=== PATIENT | male | born 1955 | race Caucasian/White ===

== ENCOUNTER 2021-11-19 02:25 | Emergency (ER) | payer MEDICAID ==
[~2021-11-19] VITALS: Ht 182.9 cm; Wt 93.8 kg
[2021-11-19] MEDS ORDERED: DOXYCYCLINE 100MG CAPSULE PO STA (02:52)
[2021-11-19] MEDS ORDERED: DOXY-1 PO (02:54)
[2021-11-19] MEDS ORDERED: CefTRIAXone 250MG inj IM ONE (02:55)
[2021-11-19] MEDS ORDERED: CefTRIAXone 1000mg IM Kit (w/lidocaine diluent) IM ONE (03:00)
[2021-11-19 03:36] VITALS: BP 190/120
== END 2021-11-19 04:05 | disposition home or self-care (01) ==
LOC: ER 02:26
DX: A64 Unspecified sexually transmitted disease (principal)
CPT/HCPCS: 96372; 99283; J0696

== ENCOUNTER 2022-03-18 14:58 | Emergency (ER) | payer MEDICAID ==
[~2022-03-18] VITALS: Ht 182.9 cm; Wt 94.0 kg
[2022-03-18 15:11] VITALS: BP 196/111
[2022-03-18 15:35] LABS: CLARITY,URINE CLOUDY (Clear); COLOR,URINE YELLOW (Yellow); GLUCOSE, URINE NEGATIVE (Neg); KETONES,URINE NEGATIVE (Neg); LEUKOCYTE ESTERASE ,URINE TRACE (Neg); NITRITES, URINE NEGATIVE (Neg); OCCULT BLOOD,URINE NEGATIVE (Neg); PROTEIN,URINE TRACE mg/dl (Neg); UROBILINOGEN,URINE 0.2 E.U/dL (0.2-1.0)
[2022-03-18 15:55] LABS: UA COLLECTION TYPE CLN CATCH MIDSTREAM
[2022-03-18 15:57] LABS: BACTERIA,URINE FEW /HPF (Neg); RBC,URINE 0-2 /HPF (0-2); SQUAMOUS EPITHELIAL CELL,UR FEW /LPF (FEW)
[2022-03-18] MEDS ORDERED: PENICILLIN G BENZATHINE 2,400,000 UNIT/4 ML SYRINGE IM STA (16:17)
[2022-03-18] MEDS ORDERED: CefTRIAXone 1000mg IM Kit (w/lidocaine diluent) IM STA (16:17)
[2022-03-18] MEDS ORDERED: DOXYCYCLINE 100MG CAPSULE PO STA (16:17)
[2022-03-18] MEDS ORDERED: DOXY100C77 PO (16:33)
== END 2022-03-18 17:10 | disposition home or self-care (01) ==
LOC: ER 14:59
DX: A64 Unspecified sexually transmitted disease (principal); N39.0 Urinary tract infection, site not specified
CPT/HCPCS: 36415; 81001; 86592; 87088; 87491; 87591; 96372; 99284; J0561; J0696

== ENCOUNTER 2025-05-25 18:12 | Emergency (ER) | payer BC, MEDICAID ==
[~2025-05-25] VITALS: Ht 182.9 cm; Wt 90.0 kg
--- NOTE | 2025-05-25 18:42 | Physician Documentation ---
History of Present Illness General Chief Complaint: Urinary Symptoms Stated Complaint: ALL OVER NUMBNESS Time Seen by MD: 18:39 Primary Medical Doctor: NONE History of Present Illness Initial Comments The patient is a 69-year-old male who states over the last month he has had urinary tract infections and had antibiotics changed 4 times. Patient states he has had multiple episodes of dizziness and numbness during this last month. He states he has been dizzy and unsteady when he ambulates he has also been weak over last two days. Patient states he does not have any current urinary symptoms. The patient states he has subjective fevers but no documented fevers he denies any nausea vomiting or diarrhea. The patient denies any focal weakness. Patient states he has a history of COPD denies denies any cardiac history. Medication Reconciliation Allergies: Coded Allergies: No Known Allergies (Unverified , 11/19/21) Scheduled Polyethylene Glycol 3350 (Clearlax), 17 GM PO BID Past Medical History Past Medical History: Hypertension Past Surgical History: no surgical history Lives In: Home Review of Systems All Other Systems at this time: Reviewed and Negative Physical Exam Physical Exam Vital Signs: Temperature: 97.9, Source: Oral, Heart Rate: 50, Respiratory Rate: 18, BP: 84/54, Pulse Oximetry: 97, Weight: 90.000 Oxygen Flow Rate: 0 Physical Exam VITALS: Reviewed and as above. GENERAL: Alert, no apparent distress. HEENT: Normocephalic, atraumatic, PERRL, EOMI, dry mucosa, no erythema RESPIRATORY: Lungs clear, normal breath sounds, no respiratory distress. CHEST: No accessory muscle use, no retractions CV: Regular rate, rhythm, no edema, no murmur, No: JVD GI: Soft, non-tender, bowels sounds present, no rebound, guarding, or rigidity BACK: No CVA tenderness, or swelling MUSCULOSKELETAL No deformities, no edema SKIN: Warm and dry, no rash NEURO: Oriented x4, No motor or sensory deficit PSYCH: Normal mood and affect, no agitation Progress Results/Orders Results/Orders Orders - KERON ZELAYA MD Culture Blood (05/25/25 18:38) Monitor (05/25/25 18:38) Straight Cath For Urine Sample (05/25/25 18:38) Cult Urine + [place] [address] (05/25/25 21:24) Completed Orders - OHLFS,KERON [place] MD Cbc/Diff (05/25/25 18:38) Lacticsepsis (05/25/25 18:38) Electrocardiogram (05/25/25 ) Procalcitonin (05/25/25 18:41) Normal Saline 1000ml (0.9% Sodium Chlori (05/25/25 18:45) Normal Saline 1000ml (0.9% Sodium Chlori (05/25/25 18:45) Hs Troponin I W Calculations (05/25/25 19:24) Ceftriaxone 2gm/D5w 50ml Bag (Rocephin 2 (05/25/25 19:55) Lactic,2hr (05/25/25 20:12) BMP (05/25/25 20:30) Ua W/Microscopic, Cult If Ind (05/25/25 20:20) Medications Received in ER Medications (Trade) Dose Ordered Sig/Josh Route PRN Reason Start Time Stop Time Status Last Admin Dose Admin Ceftriaxone Sodium/Dextrose 50 ml @ 100 mls/hr ONCE ONCE IV 05/25/25 19:55 05/25/25 20:24 DC 05/25/25 20:21 100 MLS/HR Vital Signs 05/25/25 05/25/25 05/25/25 05/25/25 18:24 18:46 18:55 18:56 Temp 97.9 Pulse 50 95 90 88 Resp 18 20 22 20 B/P (MAP) 84/54 120/63 (82) 82/63 (69) 133/81 (98) Pulse Ox 97 95 94 96 O2 Flow Rate 0 0 0 0 05/25/25 05/25/25 05/25/25 20:04 20:06 22:57 Temp 97.9 Pulse 88 90 Resp 16 18 18 B/P (MAP) Pulse Ox 97 95 O2 Flow Rate 0 Laboratory Tests Test 05/25/25 18:43 05/25/25 20:20 05/25/25 20:37 White Blood Count 11.0 Red Blood Count 5.12 Hemoglobin 15.2 Hematocrit 44.3 Mean Corpuscular Volume 86.4 Mean Corpuscular Hemoglobin 29.8 Mean Corpuscular Hemoglobin Concent 34.4 Red Cell Distribution Width 14.5 Platelet Count 364 Mean Platelet Volume 7.0 L Neutrophils (%) (Auto) 64.0 Lymphocytes (%) (Auto) 24.5 Monocytes (%) (Auto) 7.9 Eosinophils (%) (Auto) 2.6 Basophils (%) (Auto) 1.0 Neutrophils # (Auto) 7.0 Lymphocytes # (Auto) 2.7 Monocytes # (Auto) 0.9 Eosinophils # (Auto) 0.3 Basophils # (Auto) 0.1 CBC Comment Sodium Level 139 Potassium Level 4.0 Chloride Level 102 Carbon Dioxide Level 22.1 L Anion Gap 15 Blood Urea Nitrogen 30 H Creatinine 1.63 H Estimated GFR/1.73 m2 42 BUN/Creatinine Ratio 18.4 Glucose Level 138 H Lactic Acid Level 2.2 H 1.0 Calcium Level 9.4 Troponin I High Sensitivity 24 Albumin 2.8 L Procalcitonin 0.09 Chemistry Comments Urine Specimen Description Non-specified Urine Color Yellow Urine Clarity Clear Urine pH 6.0 Urine Specific [place] 1.020 Urine Protein Negative Urine Glucose (UA) Negative Urine Ketones Negative Urine Occult Blood Negative Urine Nitrite Negative Urine Bilirubin Negative Urine Urobilinogen 0.2 Urine Leukocyte Esterase Small H Urine RBC 0-2 Urine WBC 20-30 H Urine Squamous Epithelial Cells Few Urine Bacteria Few Urine Mucus Few Urine Culture Indicated Indicated Volume Urine Centrifuged 10 ml Urine Comment Microbiology Date/Time Source Procedure Growth Status 05/25/25 21:24 Urine Nonspecified Urine Culture - Preliminary Culture received. Resulted 05/25/25 20:37 Blood Arm Left Blood Culture - Preliminary NEGATIVE (LESS THAN 24 HOURS) Resulted Medical Decision Making Findings Twelve lead EKG was interpreted by me as a sinus rhythm with a normal axis no ST elevation or ST depression was appreciated impression is a normal-appearing EKG rate is 93 time of the interpretation was 184. The patient presented with weakness and numbness. The patient had several low blood pressures here in the emergency department. He has been treated over last month for urinary tract infection. The patient denied any recent fevers or chills. The patient was found to be clinically dehydrated he was hydrated in the emergency room with improvement of his blood pressure. The patient was given antibiotics for his UTI he was given a dose of ceftriaxone the patient states he is on two antibiotics at home he is not sure of which antibiotics they are. The patient's symptoms improved while she he was in the emergency room. Prior hospitalizations have been reviewed.. The patient's teletypesetter monitor was interpreted as a sinus rhythm in his pulse oximetry was interpreted as normal and adequate. The patient was discharged in he was advised to return if he has worsening or recurrence of his symptoms. Departure Time of Disposition: 22:00 Impression: Primary Impression: Acute urinary tract infection Additional Impression: Dehydration Discharge Instructions: Urinary Tract Infection, Adult Additional Instructions: Drink plenty of fluids. Follow up with your healthcare providers soon as possible. Continue your antibiotics the you already have. Return for any worsening of your symptoms. Referrals: NO PRIMARY CARE PROVIDER (PCP) Prescriptions Polyethylene Glycol 3350 (Clearlax) 17 Gram/Dose Powder 17 GM PO BID for 30 Days, #1020 POWDER Prov: KERON ZELAYA MD 05/25/25 Signature Scribe Signature: no scribe Attestation: The note accurately reflects work and decisions made by me.Keron Zelaya MD 05/26/25 03:24 KERON ZELAYA MD May 25, 2025 18:42
[2025-05-25] MEDS: normal saline 1000ml 1,000 ML IV ONE ×2 (18:47→18:48)
--- NOTE | 2025-05-25 18:47 | ELECTROCARDIOGRAPH REPORT ---
[facility] Test Date: 2025-05-25 Test Time: 18:45:35 Pat Name: WILL JO Department: [facility] Patient ID: [facility]-[id number] Room: Gender: M Medical Terminologist: : 1955 Requested By: KERON ZELAYA Order Number: [id number] Reading MD: Measurements Intervals [place] Rate: 93 P: 76 MT: 136 QRS: 54 QRSD: 93 T: 61 QT: 361 QTc: 449 Interpretive Statements Sinus rhythm Atrial premature complex Minimal ST elevation, anterior leads Please click the below link to view image of tracing.
[2025-05-25 18:52] LABS: MEAN PLATELET VOLUME 7.0 FL (7.4-10.4); RED CELL DISTRIBUTION WIDTH 14.5 % (11.5-14.5)
[2025-05-25 18:56] VITALS: BP 133/81
[2025-05-25] MEDS: CefTRIAXone 2gm/D5W 50ml BAG 50 ML IV ONE (20:21)
[2025-05-25 20:44] LABS: CREATININE 1.63 MG/DL (0.60-1.10); TOTAL CARBON DIOXIDE 22.1 MMOL/L (24-32); eCRCL 48 ML/MIN; eGFR 42 ML/MIN
[2025-05-25 21:08] LABS: LEUKOCYTE ESTERASE ,URINE SMALL (Neg); NITRITES, URINE NEGATIVE (Neg); OCCULT BLOOD,URINE NEGATIVE (Neg)
[2025-05-25 21:20] LABS: UA COLLECTION TYPE NON-SPECIFIED
[2025-05-25 21:23] LABS: SQUAMOUS EPITHELIAL CELL,UR FEW /LPF (FEW)
[2025-05-25 21:24] LABS: MUCUS STRANDS FEW /LPF (Neg)
[2025-05-25] MEDS ORDERED: POLY119P3 PO (22:41)
[2025-05-25 22:57] VITALS: PULSE 90; RESP 18; TEMP 97.9; O2SAT 95
== END 2025-05-25 23:00 | disposition home or self-care (01) ==
LOC: ER 18:13
DX: N39.0 Urinary tract infection, site not specified (principal); E86.0 Dehydration; R42 Dizziness and giddiness; R20.0 Anesthesia of skin; I10 Essential (primary) hypertension; J44.9 Chronic obstructive pulmonary disease, unspecified
CPT/HCPCS: 36415; 80048; 81001; 83605; 84145; 84484; 85025; 87040; 87088; 93005; 96361; 96365; 96366; 99285; J0696; J7030